=== PATIENT | female | born 1930 | race Native Hawaiian/Other Pacific Islander ===

== ENCOUNTER 2016-10-08 07:49 | Day surgery (SDC) | payer MEDICARE, OTHER ==
[2016-10-08] MEDS ORDERED: PROPOFOL 200 MG/20 ML BOTTLE IV ONE (07:50)
[2016-10-08] MEDS ORDERED: PHENYLEPHRINE 10 MG/1 ML VIAL MC ONE (07:50)
[2016-10-08] MEDS ORDERED: ONDANSETRON 4 MG/2 ML VIAL IV ONE (07:50)
[2016-10-08] MEDS ORDERED: SEVOFLURANE 250 ML BOTTLE IH ONE (07:50)
[2016-10-08] MEDS ORDERED: EPHEDRINE SULFATE 50 MG/ML AMPUL MC ONE (07:50)
[2016-10-08] MEDS ORDERED: IV NORMAL SALINE 1000 ML BAG IV ONE (07:50)
[2016-10-08] MEDS ORDERED: LIDOCAINE HCL 1% 20 ML VIAL MC ONE (07:50)
[2016-10-08 09:40] LABS: CARBON DIOXIDE 28 mmol/L (21-32); CHLORIDE 103 mmol/L (98-107); CREATININE 1.6 mg/dL (0.6-1.3); GLUCOSE 137 mg/dL (74-106); POTASSIUM 5.4 mmol/L (3.5-5.1); UREA NITROGEN, BLOOD 40 mg/dL (7-18)
[2016-10-08 09:50] LABS: BASOPHILS % (AUTO) 0.2 % (0.0-2.0); EOSINOPHILS # (AUTO) 0.4 K/uL (0.0-0.7); EOSINOPHILS % (AUTO) 4.1 % (0.0-7.0); HEMATOCRIT 37.7 % (37-47); HEMOGLOBIN 12.5 G/DL (12.0-16.0); LYMPHOCYTES # (AUTO) 1.9 K/UL (0.8-4.8); LYMPHOCYTES % (AUTO) 20.4 % (20.5-51.5); MEAN CORPUSCULAR HGB CONC 33 g/dL (32.0-37.0); MEAN CORPUSCULAR VOLUME 90.6 FL (81.0-99.0); MONOCYTES # (AUTO) 0.6 K/UL (0.1-1.30); MONOCYTES % (AUTO) 6.9 % (0.0-11.0); NEUTROPHILS # (AUTO) 6.5 K/UL (1.8-8.9); NEUTROPHILS % (AUTO) 68.4 % (38.5-71.5); PLATELET COUNT (AUTO) 273 K/UL (150-450); RED BLOOD CELL COUNT(AUTO) 4.16 MIL/UL (4.2-5.4); WHITE BLOOD COUNT (AUTO) 9.4 K/UL (4.0-11.2)
[2016-10-08] MEDS ORDERED: POLYMYXIN B SULFATE 500,000 UNITS, BACITRACIN 50,000 UNITS, NORMAL SALINE 20 ML MC ONE ×3 (10:45)
[2016-10-08] MEDS ORDERED: BUPIVACAINE PF 0.5% 30 ML VIAL ONE (11:03)
[2016-10-08] MEDS ORDERED: FENTANYL CITRATE 100 MCG/2 ML AMPUL ONE (11:04)
[2016-10-08] MEDS ORDERED: CLINDAMYCIN PHOSPHATE 600 MG/4 ML VIAL ONE (11:15)
== END 2016-10-08 13:41 | disposition home or self-care (01) ==
LOC: DS 07:49
PROVIDERS: ATTEND Orthopaedic Surgery
DX: D23.62 Other benign neoplasm of skin of left upper limb, including shoulder (principal); I10 Essential (primary) hypertension; K21.9 Gastro-esophageal reflux disease without esophagitis; E11.9 Type 2 diabetes mellitus without complications; E78.5 Hyperlipidemia, unspecified; M19.90 Unspecified osteoarthritis, unspecified site
CPT/HCPCS: 36415; 84132; 85025; 85730; 93005; A4649; A4663; J2370; J2405; J3010; J3490; J7030